=== PATIENT | female | born 1975 | race Caucasian/White ===

== ENCOUNTER 2018-10-06 22:45 | Emergency (ER) | payer BC ==
--- NOTE | 2018-10-06 23:06 | EDPHY ---
H & P Stated Complaint: Hives since Aug, worse after taking Claritan tonight. Time Seen by Provider: 10/06/18 23:05 HPI/ROS: CC: hives HPI: This 43-year-old female with past medical history of hypertension, hypothyroidism, and hives that she has had on and off for a number of years presents to the emergency department today with complaints of hives that have again plagued her for the last month intermittently. She states she had a workup in the [place] approximately 4 years ago and they found no allergies and the thinking is the hives are due to stress. She and her are remodeling their home and having difficulty with contractors. She took Benadryl this morning and Zyrtec (not Claritin as in the triage note) tonight but the hives have become worse despite these measures. She denies throat discomfort or difficulty swallowing, she has no shortness of breath, dizziness or abdominal pain. The rash is generalized and very pruritic. She also thinks she has a mild form of eczema. Her blood pressure is elevated despite taking her usual for amlodipine 2.5 mg, lisinopril/hydrochlorothiazide 10/12.5 mg this morning. She has had a mild headache for 3 days. She had a cardiac workup just a year ago including a stress test which was normal. She has not seen her patrol officer or her primary care provider for about a year. REVIEW OF SYSTEMS: Constitutional: No fever, no chills. Eyes: No discharge. ENT: No sore throat. Respiratory: No cough, no shortness of breath. Cardiac: No chest pain, no palpitations. Gastrointestinal: No abdominal pain, no vomiting. Musculoskeletal: No back pain. Skin: See HPI. Neurological: See HPI. No numbness, tingling, weakness. Source: Patient Exam Limitations: No limitations - Personal History LMP (Females 10-55): 1-7 Days Ago Current Tetanus/Diphtheria Vaccine: Unsure Current Tetanus Diphtheria and Acellular Pertussis (TDAP): Unsure - Medical/Surgical History PMH: PMH: HTN, hypothyroidism, hives PSH: Denied FH: Mother is alive at age 70 and has hypothyroidism; father is alive at age 71 and has coronary artery disease, hypertension, has had coronary artery bypass graft with aortic valve replacement, and a history of colon cancer and strokes; The patient's sister has sarcoidosis; the patient's brother has kidney problems and high cholesterol. NKDA Medications: Amlodipine 2.5 mg per day, lisinopril/hydrochlorothiazide 10/12.5 mg per day; Benadryl, Zyrtec PRN LMP: One week ago PCP: Dr. Bisi Rivero Hx Asthma: No Hx Chronic Respiratory Disease: No Hx Diabetes: No Hx Cardiac Disease: Yes Hx Renal Disease: No Hx Cirrhosis: No Hx Alcoholism: No Hx HIV/AIDS: No Hx Splenectomy or Spleen Trauma: No Other PMH: HTN, hypothyroidism. - Social History Smoking Status: Never smoked Additional Social History: The patient is . 3 para 3. Denies tobacco use, she has a couple of drinks per week, and no history of drug use. - Physical Exam Exam: General Appearance: Alert, mild distress. Eyes: Pupils equal and round no pallor or injection. ENT, Mouth: Mucous membranes are moist. No edema, uvula midline. Respiratory: There are no retractions, lungs are clear to auscultation. Cardiovascular: Regular rate and rhythm. Gastrointestinal: Abdomen is soft and nontender, no masses, bowel sounds normal. Neurological: Awake and alert, sensory and motor exams grossly normal. Nonfocal exam. Skin: Warm and dry, patches of raised, erythematous, pruritic lesions diffusely. Worse near axillary regions, stomach, and thighs. Musculoskeletal: Neck is supple nontender. Extremities are symmetrical, full range of motion. Psychiatric: Patient is oriented X 3, there is no agitation. DIFFERENTIAL DIAGNOSIS: After history and physical exam differential diagnosis was considered for but not limited to and in no particular order: urticaria, allergic reaction, poorly controlled hypertension. Constitutional: Initial Vital Signs Temperature (C) 97.7 F 10/06/18 22:51 Heart Rate 84 10/06/18 22:51 Respiratory Rate 18 10/06/18 22:51 Blood Pressure 160/120 H 10/06/18 22:51 O2 Sat (%) 96 10/06/18 22:51 O2 Delivery Mode Room Air Allergies/Adverse Reactions: No Known Allergies Allergy (Verified 10/06/18 22:50) Home Medications: Medication Instructions Recorded Lisinopril/Hctz 10/12.5 mg 1 ea PO DAILY #30 tab 07/12/15 [Zestoretic/Prinzide 10/12.5MG (*)] Amlodipine Besylate 10/06/18 Levothyroxine 10/06/18 predniSONE [predniSONE TAPER] 10 mg PO DAILY 10 Days #21 ea 10/07/18 Medical Decision Making ED Course/Re-evaluation: The patient was seen and examined. Vital signs reviewed and were remarkable for hypertension. Prior records reviewed in the [facility]. The patient declined an IV. She had already taken Zyrtec just prior to arrival. She was given 60 mg of prednisone, 20 mg of Pepcid, and another 2.5 mg of amlodipine. Her blood pressure responded with a diastolic pressure of just over 100 mm of mercury prior to discharge. She was advised to continue taking 5 mg of amlodipine daily until she could follow up with her patrol officer early this week. She was given a prednisone taper and will take over-the- counter Pepcid as well as [id number] Benadryl or Zyrtec. Her rash was improving upon discharge and she was comfortable going home. She will return to the emergency room if she has any change in or worsening of symptoms as discussed. She was given a referral to an transition assistant. She did not remember the name of her patrol officer but has her name at home. She will also follow up with her primary care provider Dr. Bisi Rivero. - Data Points Medications Given: Discontinued Medications Amlodipine Besylate (Norvasc) 2.5 mg PO EDNOW ONE Stop: 10/06/18 23:38 Last Admin: 10/06/18 23:44 Dose: 2.5 mg Famotidine (Pepcid) 20 mg PO EDNOW ONE Stop: 10/06/18 23:38 Last Admin: 10/06/18 23:44 Dose: 20 mg Prednisone (Prednisone) 60 mg PO EDNOW ONE Stop: 10/06/18 23:38 Last Admin: 10/06/18 23:44 Dose: 60 mg Departure - Departure Disposition: Home, Routine, Self-Care Clinical Impression: Hives, Hypertension Condition: Good Instructions: Urticaria (ED), Hypertension (ED) Additional Instructions: Take the prednisone as prescribed. Continue either Benadryl or Zyrtec as directed. Add Pepcid (or Zantac or Tagamet) to your regimen as directed. Consider follow up with an Media Traffic Manager. Increase your amlodipine to 5mg a day (take two of your 2.5mg tablets daily). Follow up with your patrol officer (call Monday for appointment). Ask if a renal ultrasound was ever performed and if not, is it indicated. Follow up with your primary care provider as well this week. Return to the ER if symptoms change or worsen. Referrals: Bisi Rivero MD [Medical Doctor] - As per Instructions Barry Floyd MD [Medical Doctor] - As per Instructions Prescriptions: predniSONE [predniSONE TAPER] 10 mg PO DAILY 10 Days #21 ea
[2018-10-06] MEDS ORDERED: predniSONE 20 MG TAB PO ONE (23:37)
[2018-10-06] MEDS ORDERED: amLODIPine BESYLATE 5 MG TAB PO ONE (23:37)
[2018-10-06] MEDS ORDERED: FAMOTIDINE 20 MG TAB PO ONE (23:37)
[2018-10-07 00:16] VITALS: BP 151/103
== END 2018-10-07 00:40 | disposition home or self-care (01) ==
LOC: CED 22:45
DX: L50.9 Urticaria, unspecified (principal); I10 Essential (primary) hypertension; E03.9 Hypothyroidism, unspecified
CPT/HCPCS: J7512

== ENCOUNTER → 2019-01-16 | Outpatient (CLI) | payer BC, OTHER | LOC: CIMAGING 12:49 | PROVIDERS: ATTEND Family Medicine | DX: N60.09 Solitary cyst of unspecified breast (principal); N63.10 Unspecified lump in the right breast, unspecified quadrant; Z80.0 Family history of malignant neoplasm of digestive organs | CPT/HCPCS: 76641-PO ==

== ENCOUNTER → 2019-02-06 | Outpatient (CLI) | payer OTHER ==
[~2019-02-06] MED LIST: BUPIVACAINE 0.5% 30 ML SDV ONE; LIDOCAINE 1% 300 MG/30 ML SDV ONE
== END ==
LOC: FIMAGING 07:18
PROVIDERS: ATTEND Family Medicine
PROC: 0HBT3ZX Excision of Right Breast, Percutaneous Approach, Diagnostic (ICD-10-PCS; principal; 2019-02-06)
DX: C50.411 Malignant neoplasm of upper-outer quadrant of right female breast (principal); D24.1 Benign neoplasm of right breast

== ENCOUNTER → 2019-02-15 | Outpatient (CLI) | payer BC, OTHER ==
[~2019-02-15] MED LIST changes: -BUPIVACAINE 0.5% 30 ML SDV ONE; +GADOBUTROL 10 ML VIAL IVP ONE; -LIDOCAINE 1% 300 MG/30 ML SDV ONE
== END ==
LOC: FIMAGING 09:23
PROVIDERS: ATTEND Surgery
DX: D05.11 Intraductal carcinoma in situ of right breast (principal); N60.21 Fibroadenosis of right breast; R92.8 Other abnormal and inconclusive findings on diagnostic imaging of breast
CPT/HCPCS: A9585; C8908

== ENCOUNTER 2019-03-26 13:31 | Observation (INO) | payer BC ==
[2019-03-26] MEDS ORDERED: LR 1,000 ML IV ONE ×2 (14:23→19:18)
[2019-03-26] MEDS ORDERED: SCOPOLAMINE HYDROBROMIDE 1 MG/3 DAYS PATCH TD ONE (15:43)
[2019-03-26] MEDS ORDERED: GENTAMICIN SULFATE 80 MG/2 ML VIAL ONE (15:54)
[2019-03-26] MEDS ORDERED: ceFAZolin 1 GM/5 ML SYR ONE (15:54)
[2019-03-26] MEDS ORDERED: BACITRACIN ZINC 0.5 OZ OINTTUBE TP ONE (15:55)
[2019-03-26] MEDS ORDERED: METHYLENE BLUE 0.5% 50 MG/10 ML AMP ONE (15:55)
[2019-03-26] MEDS ORDERED: BACITRACIN 50,000 UNITS/10 ML SYR IRR ONE (15:55)
[2019-03-26] MEDS ORDERED: DEXAMETHASONE 4 MG/ML VIAL ONE (15:57)
[2019-03-26] MEDS ORDERED: ROPIVACAINE HCL 150 MG/30 ML INJ ONE (15:57)
[2019-03-26] MEDS ORDERED: ONDANSETRON 4 MG/2 ML VIAL ONE (15:57)
[2019-03-26] MEDS ORDERED: PROPOFOL/EMULSION 500 MG/50 ML BOTTLE IV ONE (15:57)
[2019-03-26] MEDS ORDERED: LIDOCAINE 2% 5 ML SDV ONE (15:57)
[2019-03-26] MEDS ORDERED: ROCURONIUM 50 MG/5 ML VIAL ONE (15:57)
[2019-03-26] MEDS ORDERED: fentaNYL 100 MCG/2 ML INJ ONE (17:22)
[2019-03-26] MEDS: LIDOCAINE 0.5% 50 ML SDV ONE ×2 (18:10→19:18)
[2019-03-26] MEDS: EPINEPHrine 1 MG/ML INJ ONE ×2 (18:10→19:17)
[2019-03-26] MEDS ORDERED: PHENYLEPHRINE HCL 100 MCG/ML SYR ONE ×3 (18:10→18:41)
[2019-03-26] MEDS: BUPIVACAINE 0.25% 30 ML SDV ONE ×2 (18:12→19:17)
[2019-03-26] MEDS ORDERED: PROPOFOL 200 MG/20 ML VIAL ONE ×2 (18:34)
[2019-03-26] MEDS ORDERED: ONDANSETRON 4 MG/2 ML VIAL IVP PRN (19:05)
[2019-03-26] MEDS ORDERED: TEMAZEPAM 15 MG CAP PO PRN (19:05)
[2019-03-26] MEDS ORDERED: ACETAMINOPHEN 325 MG TAB PO PRN (19:05)
[2019-03-26] MEDS ORDERED: HYDROmorphONE/DILAUDID 1 MG/ML INJ ONE (19:41)
[2019-03-26] MEDS ORDERED: PROMETHAZINE HCL 25 MG/ML INJ IVP PRN (19:41)
[2019-03-26] MEDS ORDERED: NALOXONE HCL 0.4 MG/ML INJ IVP PRN (19:41)
[2019-03-26] MEDS ORDERED: DIAZEPAM 10 MG/2 ML SYR IVP PRN (19:41)
[2019-03-26] MEDS ORDERED: fentaNYL 100 MCG/2 ML INJ IVP PRN (19:41)
[2019-03-26] MEDS ORDERED: LR 500 ML IV PRN (19:41)
[2019-03-26] MEDS ORDERED: oxyCODONE IR 5 MG TAB PO PRN (19:41)
[2019-03-26] MEDS ORDERED: ALBUTEROL 3 ML DEYVIAL IH PRN (19:41)
[2019-03-26] MEDS: HYDROmorphONE/DILAUDID 1 MG/ML INJ IVP PRN ×3 (19:45→22:05)
[2019-03-26] MEDS: KETOROLAC 15 MG/1 ML SDV IVP SCH (23:37)
[2019-03-26] MEDS: ALPRAZolam 0.25 MG TAB PO SCH (23:46)
[2019-03-27] MEDS ORDERED: LR 1,000 ML IV ONE (00:30)
[2019-03-27] MEDS: HYDROCODONE/APAP 5/325 TAB PO PRN ×6 (01:36→21:26)
[2019-03-27] MEDS: LEVOTHYROXINE 75 MCG TAB PO SCH (05:34)
[2019-03-27] MEDS: KETOROLAC 15 MG/1 ML SDV IVP SCH ×4 (05:34→23:42)
[2019-03-27] MEDS: CETIRIZINE 10 MG TAB PO SCH (07:57)
[2019-03-27] MEDS: ALPRAZolam 0.25 MG TAB PO SCH ×3 (08:58→21:26)
[2019-03-27] MEDS: LISINOPRIL 10 MG TAB PO SCH (08:59)
[2019-03-27] MEDS: amLODIPine BESYLATE 5 MG TAB PO SCH (08:59)
[2019-03-27] MEDS ORDERED: NS 1,000 ML IV ONE (14:00)
[2019-03-27] MEDS: LR 1,000 ML IV SCH (17:35)
[2019-03-28] MEDS: HYDROCODONE/APAP 5/325 TAB PO PRN ×4 (02:49→14:15)
[2019-03-28] MEDS: LEVOTHYROXINE 75 MCG TAB PO SCH (06:01)
[2019-03-28] MEDS: LR 1,000 ML IV SCH (06:02)
[2019-03-28] MEDS: KETOROLAC 15 MG/1 ML SDV IVP SCH ×2 (06:02→11:46)
[2019-03-28] MEDS ORDERED: diphenhydrAMINE 25 MG CAP PO PRN (08:34)
[2019-03-28] MEDS: ALPRAZolam 0.25 MG TAB PO SCH ×2 (08:43→09:30)
[2019-03-28] MEDS: amLODIPine BESYLATE 5 MG TAB PO SCH (08:43)
[2019-03-28] MEDS: CETIRIZINE 10 MG TAB PO SCH (08:43)
[2019-03-28] MEDS: LISINOPRIL 10 MG TAB PO SCH (08:44)
== END 2019-03-28 14:18 | disposition home or self-care (01) ==
DX: C50.811 Malignant neoplasm of overlapping sites of right female breast (principal); D24.1 Benign neoplasm of right breast; N60.11 Diffuse cystic mastopathy of right breast; N60.12 Diffuse cystic mastopathy of left breast
CPT/HCPCS: 19303; 19357; 38525; A9520; G0378